=== PATIENT | male | born 1995 | race Caucasian/White ===

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

== ENCOUNTER → 2017-02-18 | Day surgery (SDC) | payer OTHER ==
[~2017-02-18] MED LIST: LIDOCAINE 1% 300 MG/30 ML SDV SC ONE
--- NOTE | 2017-02-18 09:50 | PDGENHP ---
History & Physical Chief Complaint: Syncope History of Present Illness: 21-year-old with recurrent syncope Pertinent Past, Social, Family History: None Relevant Physical Exam: Heart rate 62. Blood pressure 120/70. Thin male in no distress. Chest was clear. Cardiac exam showed regular rate rhythm without gallop. Extremities are free of edema. Cardiorespiratory Assessment: Syncope uncertain etiology. LINQ monitor today.
--- NOTE | 2017-02-18 10:07 | PDCTREPORT ---
Cardiothoracic Procedure Rpt Cardiothoracic Procedure Report: Procedure: Implantation of a LINQ monitor. After obtaining informed consent left marcella pectoral region was sterilely prepped and draped. 2% xylocaine was used to infiltrate small region in the anterior chest. Using a 10 blade stab wound was made. Using the insertion tool a pocket for the LINQ was created in the subcutaneous tissue. The LINQ recorder was injected under the skin. 3 kenneth were used to close the incision. Pressure dressing was applied. Technical difficulties none Complications none. Conclusions: Syncope status post successful implantation of a Linq recorder. Patient Problems: Problems Problem Status Onset Syncope Acute Syncope, effort Acute
== END | disposition home or self-care (01) ==
LOC: FCATH 08:43
PROVIDERS: ATTEND Internal Medicine Interventional Cardiology
PROC: 0JH602Z Insertion of Monitoring Device into Chest Subcutaneous Tissue and Fascia, Open Approach (ICD-10-PCS; principal; 2017-02-18)
DX: R55 Syncope and collapse (principal)
CPT/HCPCS: C1764

== ENCOUNTER 2017-05-27 07:17 | Observation (INO) | payer OTHER ==
[~2017-05-27 07:17] MED LIST changes: -LIDOCAINE 1% 300 MG/30 ML SDV SC ONE; +NS 1,000 ML IV ONE
--- NOTE | 2017-05-27 07:37 | CPEKG ---
Heart Rate: 70 RR Interval: 857 P-R Interval: 168 QRSD Interval: 102 QT Interval: 388 QTC Interval: 419 P Groom: 76 QRS Groom: 107 T Wave Groom: 62 EKG Severity - ABNORMAL ECG - EKG Impression: SINUS RHYTHM EKG Impression: PROBABLE LEFT ATRIAL ABNORMALITY EKG Impression: incomplete RBBB Electronically Signed By: Osiel Mercedes 27-May-2017 08:41:07
[2017-05-27 07:50] LABS: PLATELET COUNT 260 10^3/uL (150-400)
[2017-05-27 08:09] LABS: INR 1.15 (0.83-1.16); PROTIME(PATIENT) 14.9 SEC (12.0-15.0)
[2017-05-27] MEDS ORDERED: ISOPROTERENOL HCL/D5W 0.2 MG/50 ML BAG IV ONE ×2 (08:23→11:00)
[2017-05-27] MEDS ORDERED: HEPARIN 10,000 UNIT/10 ML MDV (1,000 UNIT/ML) ONE ×2 (08:23→10:18)
[2017-05-27] MEDS ORDERED: LIDOCAINE 1% 300 MG/30 ML SDV ONE (08:23)
[2017-05-27] MEDS ORDERED: BUPIVACAINE 0.5% 30 ML SDV ONE (08:23)
[2017-05-27] MEDS ORDERED: MIDAZOLAM 2 MG/2 ML VIAL IVP ONE (08:31)
--- NOTE | 2017-05-27 08:33 | PDANEPAE ---
ANE History of Present Illness svt ANE Past Medical History - Cardiovascular History Hx Arrhythmias: Yes - Pulmonary History Hx Sleep Apnea: No ANE Review of Systems Review of Systems: ANE Patient History - Allergies Allergies/Adverse Reactions: No Known Allergies Allergy (Verified 05/20/17 10:31) - Home Medications Home Medications: NK [No Known Home Meds] 05/20/17 [Last Taken Unknown] - Smoking Hx Smoking Status: Former smoker ANE Labs/Vital Signs - Labs Result Diagrams: 05/27/17 07:40 05/27/17 07:40 - Vital Signs Height: 195.58 cm Weight: 77.111 kg ANE Physical Exam - Airway Neck exam: FROM Mallampati Score: Class 1 Mouth exam: normal dental/mouth exam - Pulmonary Pulmonary: no respiratory distress - Cardiovascular Cardiovascular: regular rate and rhythym - ASA Status ASA Status: II ANE Anesthesia Plan Anesthesia Plan: general endotracheal anesthesia
[2017-05-27] MEDS ORDERED: ROCURONIUM 50 MG/5 ML VIAL ONE (08:36)
[2017-05-27] MEDS ORDERED: fentaNYL 100 MCG/2 ML INJ ONE ×2 (08:36)
[2017-05-27] MEDS ORDERED: DEXAMETHASONE 4 MG/ML VIAL ONE (08:36)
[2017-05-27] MEDS ORDERED: PROPOFOL 200 MG/20 ML VIAL ONE ×2 (08:36→09:02)
[2017-05-27] MEDS ORDERED: ONDANSETRON 4 MG/2 ML VIAL ONE (08:36)
--- NOTE | 2017-05-27 08:37 | PDGENHP ---
History & Physical Chief Complaint: symptomatic svt History of Present Illness: palps, syncope Relevant Physical Exam: s1s2 rrr cta ao3 Cardiorespiratory Assessment: svt on linq, rates up to 240 bpm. for eps and ablation. poss need for ts puncture d.w. them
[2017-05-27] MEDS ORDERED: ADENOSINE 6 MG/2 ML VIAL ONE (09:56)
[2017-05-27] MEDS ORDERED: PROTAMINE SULFATE 50 MG/5 ML VIAL IVP ONE (11:22)
[2017-05-27] MEDS ORDERED: SUGAMMADEX SODIUM 200 MG/2 ML VIAL IVP ONE (11:35)
[2017-05-27] MEDS ORDERED: PHENYLEPHRINE HCL 100 MCG/ML SYR ONE (11:35)
[2017-05-27] MEDS ORDERED: epHEDrine SULFATE 10 MG/ML SYR ONE (11:35)
[2017-05-27] MEDS ORDERED: ATROPINE SULFATE 1 MG/10 ML SYR ONE (11:35)
[2017-05-27] MEDS ORDERED: ONDANSETRON 4 MG/2 ML VIAL IVP PRN (11:45)
[2017-05-27] MEDS ORDERED: PROMETHAZINE HCL 25 MG/ML INJ IVP PRN (11:45)
[2017-05-27] MEDS ORDERED: fentaNYL 100 MCG/2 ML INJ IVP PRN (11:45)
[2017-05-27] MEDS ORDERED: NALOXONE HCL 0.4 MG/ML INJ IVP PRN (11:45)
--- NOTE | 2017-05-27 11:46 | POSTANESTH ---
Post Anesthetic Evaluation Cardiovascular Status: Normal, Stable Respiratory Status: Normal, Stable Level of Consciousness/Mental Status: Can Participate in Eval Pain Control: Adequate, Prn Tx Ordered Nausea/Vomiting Control: Adequate, Prn Tx Ordered Complications Possibly Related to Anesthesia: None Noted
--- NOTE | 2017-05-27 11:47 | EPPROC ---
Electrophysiology Procedure Note: ELECTROPHYSIOLOGIC STUDY AND CATHETER MEDIATED ABLATION OF ATYPICAL (FAST/SLOW ) AV TENA REENTRY TACHYCARDIA PROCEDURES PERFORMED: 06612-03 EP evaluation with RA/RV/LA pace/record, with arrhythmia induction 62093-68 EP evaluation with RA/RV pace record, insert/reposition catheter, with arrhythmia induction 71409 Intracardiac catheter ablation, SVT arrhythmogenic focus 26724 3D mapping Fluoroscopy INDICATION: SVT Syncope PROCEDURE: Catheters & Anesthesia: The patient arrived in the Electrophysiology Laboratory in the fasting state. The right clavicular region, right groin, and left groin area were prepped and draped in the usual sterile manner. Anesthesiologist Dr. Veronica Davidson administered general anesthesia. Appropriate non-invasive blood pressure, pulse oximetry and end-tidal CO2 monitoring was established. All catheters were placed percutaneously using the modified Seldinger technique , and advanced into position under fluoroscopic guidance. One #6 Trin[place]adian hexapolar non-deflectable electrode catheter was inserted into the right atrial appendage via the left femoral vein (2mm spacing; except the proximal ring which was 25cm from the tip used for unipolar recordings). One #7 Trin[place]adian deflectable octapolar electrode catheter was advanced to the His-bundle position via the left femoral vein (2mm spacing). One #7 Trin[place]adian deflectable quadrapolar catheter was advanced to the anteroseptal right ventricle via the right femoral vein. One #7 Trin[place]adian deflectable catheter with 10 pairs of electrodes was placed via the right femoral vein into the coronary sinus. Halo catheter was also placed along TA to r/o accessory pathway. Probe patent PFO was present. Heparin was given to keep ACT > 250 s. Programmed stimulation was performed from the right atrium, right ventricle and coronary sinus (left atrium). Parahisian pacing demonstrated constant H-A interval with changing V-A intervals and stimulus-A intervals during capture and loss of capture of proximal RBB proving retrograde conduction over AV node. AVNRT was induced easily during infusion of isoproterenol 1 mcg/min. Ventricular extrastimuli delivered during tachycardia without altering antegrade His bundle activation did not advance next atrial potential, indicating that the tachycardia was not utilizing an accessory pathway for retrograde conduction. VA interval was 145 ms. Post entrainment of the tachycardia from the ventricle, there was VAAHV response (but not typical of AT , c.w. FS AVNRT). Tachycardia terminated with adenosine 6 mg. Above characteristics favored FS AVNRT over AT. A #8 Trinidadian deflectable quadrapolar electrode catheter (2mm-5mm-2mm spacing) with 4 mm tip electrode and sensor for the 3D mapping Carto system was advanced to the right atrium. 3 D mapping of the inter-atrial septum and coronary sinus was performed and location of the AV node was marked. A [employer] sheath was used. RF applications were delivered to the region between the tricuspid annulus and the coronary sinus ostium, at the level of the upper edge of the coronary sinus ostium. Radiofrequency applications were also delivered along the roof of the proximal coronary sinus. Junctional rhythm occurred during all of the RF applications. Programmed stimulation was continued post ablation at baseline and during graded doses of isoproterenol upto 4mcg/min. Sustained AVNRT was not inducible. There were no echo beats. Programmed stim was also done with isoproterenol bolus 8 mcg, ephedrine bolus 10 mg and atropine bolus 0.5 mg. The catheters were removed. Sheaths were removed in the EP lab after applying subcutaneous purse string suture. The patient was transferred to the cardiovascular holding area in stable condition. There were no apparent complications. Results: A. Spontaneous Intervals: Pre ablation SCL 830 ms AH 95 ms HV 40 ms Post ablation SCL 710 ms AH 80 ms HV 40 ms B. Antegrade AV tena function (decremental pacing) Pre ablation FPERP 450 ms WBB CL 440 ms Post ablation FPERP 360 ms WBB CL 350 ms C. Retrograde AV tena function (decremental pacing) Pre ablation FPERP 490 ms WBB CL 480 ms D. Arrhythmias: Sustained slow/fast AVNRT Cycle length 270 ms, AH interval 70 ms, [place] interval 200 ms VA interval 145 ms CONCLUSIONS 1. Atypical (Fast/slow) AVNRT 2. Successful ablation of the slow AV tena pathway with elimination of 1:1 antegrade conduction over the slow AV tena pathway, all retrograde conduction over the slow AV tena pathway and the inducibility of AVNRT. 3. No complications. Patient Problems: Problems Problem Status Onset Supraventricular tachycardia Acute Syncope Acute Syncope, effort Acute
--- NOTE | 2017-05-27 11:59 | CPEKG ---
Heart Rate: 98 RR Interval: 612 P-R Interval: 156 QRSD Interval: 94 QT Interval: 340 QTC Interval: 435 P Mecca: 74 QRS Mecca: 93 T Wave Mecca: 68 EKG Severity - BORDERLINE ECG - EKG Impression: SINUS RHYTHM EKG Impression: PROBABLE LEFT ATRIAL ABNORMALITY EKG Impression: CONSIDER RIGHT VENTRICULAR HYPERTROPHY EKG Impression: ST ELEV, PROBABLE NORMAL EARLY REPOL PATTERN Electronically Signed By: Gaby Castañeda 27-May-2017 17:08:15
[2017-05-27] MEDS: ACETAMINOPHEN 325 MG TAB PO PRN (12:51)
[2017-05-28] MEDS: ACETAMINOPHEN 325 MG TAB PO PRN (02:52)
[2017-05-28 04:34] LABS: PLATELET COUNT 229 10^3/uL (150-400)
[2017-05-28 04:49] LABS: CREATINE KINASE 342 IU/L (0-224)
[2017-05-28 08:26] VITALS: BP 111/66
[2017-05-28] MEDS ORDERED: ASPIRIN 81 MG CHEWABLE TAB PO SCH (09:00)
--- NOTE | 2017-05-28 10:05 | CPEKG ---
Heart Rate: 70 RR Interval: 857 P-R Interval: 172 QRSD Interval: 102 QT Interval: 372 QTC Interval: 402 P Laveen: 65 QRS Laveen: 85 T Wave Laveen: 45 EKG Severity - ABNORMAL ECG - EKG Impression: SINUS RHYTHM EKG Impression: LEFT ATRIAL ABNORMALITY Electronically Signed By: Gaby Castañeda 28-May-2017 11:21:24
--- NOTE | 2017-05-28 10:17 | ECHO ---
[email or web address] [address] [address] Main: [phone] Fax: Transthoracic Echocardiogram Name: AGUILAR DOCKERY MR#: [id number] Study Date: 05/28/2017 Study Time: 09:10 AM Date of : 1995 Age: 21 year(s) Height: 195.6 cm (77 in.) Weight: 77.11 kg (170 lb.) BSA: 2.09 m2 Gender: Male Examination: Echo Indication: Post EP Image Quality: Contrast: Requested by: Osiel Mercedes BP: 111 mmHg/66 mmHg Heart Rate: Rhythm: Indication: Post EP Procedure Staff Cement Finisher: Scott Chavis RDCS Reading Physician: Bari Stoner MD Requesting Provider: Conclusions: Normal study Measurements: Chambers Valvular Assessment AV/MV Valvular Assessment TV/PV Normal Normal Normal Name Value Range Name Value Range Name Value Range Ao Buffy (MM): 3.2 cm (2.2 cm-3.7 AV Vmax: 0.90 m/s (1 m/s-1.7 TR Vmax: 2.80 mm/s ( - ) cm) m/s) TR PGmax: 31 mmHg ( - ) IVSd (2D): 0.9 cm (0.6 cm-1.1 AV maxP mmHg ( - ) syst. PAP: 36 mmHg ( - ) cm) LVOT Vmax: 0.63 m/s (0.7 m/s-1.1 PV Vmax: 0.90 m/s (0.6 m/s-0.9 LVDd (2D): 4.9 cm (4.2 cm-5.9 m/s) m/s) cm) MV E Vmax: 1.00 m/s ( - ) PV PGmax: 3 mmHg ( - ) LVDs (2D): 3.0 cm (2.1 cm-4 MV A Vmax: 0.63 m/s ( - ) cm) MV E/A: 1.59 ( - ) LVPWd (2D): 0.9 cm (0.6 cm-1 cm) LVEF (2D): 70 (>=54 %) Continued Measurements: Valvular Assessment AV/MV Valvular Assessment TV/PV Name Value Name Value MV E' Septal: 0.12 m/s CVP (est.): 5 mmHg MV E/E' Septal: 8.40 MV E/E' Lateral: 9.40 Findings: Left Ventricle: Normal size left ventricle. No LV hypertrophy. Normal global systolic LV function. EF is 70 %. No Patient: AGUILAR DOCKERY Study Date: 05/28/2017 Page 1 of 2 09:10 AM regional wall motion abnormality. Normal diastolic LV function. Right Ventricle: Normal size right ventricle. Normal RV function. Left Atrium: The left atrium is normal in size. An agitated saline study was performed and was positive for intracardiac shunting. Right Atrium: The right atrium is normal in size. Mitral Valve: The mitral valve is normal in appearance and function. There is no mitral valve regurgitation. Aortic Valve: The aortic valve is tri-leaflet and functions normally. There is no aortic valve regurgitation. Tricuspid Valve: The tricuspid valve appears normal. Trivial tricuspid valve regurgitation. The pulmonary artery pressure is normal. Pulmonic Valve: The pulmonic valve is normal in appearance and function. Aorta: The aorta is normal. Pericardium: No pericardial effusion. (No Signature Object) Patient: AGUILAR DOCKERY Study Date: 05/28/2017 Page 2 of 2 09:10 AM [id number]
--- NOTE | 2017-05-28 14:45 | GDS ---
[f rep st] DISCHARGE SUMMARY DISCHARGE DIAGNOSES: 1. Atrioventricular cecile reentrant tachycardia, status post ablation. 2. Small patent foramen ovale. HOSPITAL COURSE: For detailed H and P, please see prior dictation. Briefly, the patient is a 21-year-old male with a history of presyncope, syncope, and recurrent dizziness. Some of his events were associated with tachycardia. He saw Dr. Stoner in the office in February at which time, a LINQ monitor was placed. He was identified to have SVT at rates of 240 beats per minute. He had a phone conference call with Dr. Mercedes and ultimately decided to proceed with an EP study and possible ablation. This was performed on 05/27/2017. He was identified to have an AV cecile reentrant tachycardia which was ablated with good results. The following morning, he complained of mild chest pressure without any shortness of breath. His troponin was 0.306. His EKG the day of discharge revealed normal sinus rhythm with an incomplete right bundle branch block. An echocardiogram showed preserved LV function without any evidence of pericardial effusion. He did have a bubble study which showed a small PFO. PHYSICAL EXAMINATION: GENERAL: Patient appears in no acute distress. VITAL SIGNS: Blood pressure 111/66, heart rate 78, oxygen saturation of 94% on room air, afebrile. NECK: No carotid bruits or JVD present. LUNGS: Clear to auscultation. No wheezes, rhonchi, or crackles auscultated. CARDIAC: Regular rate and rhythm without any significant murmurs, rubs, or gallops appreciated. EXTREMITIES: Bilateral groins, where access was obtained for the EP study and ablation, are clean, intact, without any evidence of infection or hematoma. DISCHARGE MEDICATIONS: Aspirin 81 mg daily, Tylenol p.r.n. for pain. PLAN: Groin precautions were discussed. He will follow up with Dr. Stoner when he returns from school in 2 months. A linq is still in place. /[id number]/MODL MTDD
== END 2017-05-28 11:53 | disposition home or self-care (01) ==
LOC: FCATH 07:17 → F2W 11:50
PROVIDERS: ADMIT Internal Medicine Cardiovascular Disease; ATTEND Internal Medicine Cardiovascular Disease
PROC: 4A023N8 Measurement of Cardiac Sampling and Pressure, Bilateral, Percutaneous Approach (ICD-10-PCS; principal; 2017-05-27)
PROC: 02583ZZ Destruction of Conduction Mechanism, Percutaneous Approach (ICD-10-PCS; principal; 2017-05-27)
PROC: 02K83ZZ Map Conduction Mechanism, Percutaneous Approach (ICD-10-PCS; principal; 2017-05-27)
PROC: 5A1213Z Performance of Cardiac Pacing, Intermittent (ICD-10-PCS; principal; 2017-05-27)
PROC: B2111ZZ Fluoroscopy of Multiple Coronary Arteries using Low Osmolar Contrast (ICD-10-PCS; principal; 2017-05-27)
PROC: B2161ZZ Fluoroscopy of Right and Left Heart using Low Osmolar Contrast (ICD-10-PCS; principal; 2017-05-27)
DX: I47.1 Supraventricular tachycardia (principal); Q21.1 Atrial septal defect
CPT/HCPCS: 93005; 93306; G0378; C1730; C1731; C1732; C1766; J0153; J0461; J1100; J1644; J2250; J2370; J2405; J2704; J2720; J3010